=== PATIENT | male | born 1955 | race Two or more races ===

== ENCOUNTER 2023-09-08 20:02 | Emergency (ER) | payer MEDICARE, OTHER ==
[~2023-09-08] VITALS: Ht 177.8 cm; Wt 74.8 kg
[2023-09-08 21:13] LABS: BASOPHILS # (AUTO) 0.1 K/uL (0.0-0.2); BASOPHILS % (AUTO) 0.7 % (0.0-2.0); EOSINOPHILS # (AUTO) 0.2 K/uL (0.0-0.7); HEMATOCRIT 36 % (39-51); HEMOGLOBIN 12.6 g/dL (13.5-17.5); LYMPHOCYTES # (AUTO) 2.3 K/uL (0.8-4.8); LYMPHOCYTES % (AUTO) 25.6 % (20.0-44.0); MEAN CORPUSCULAR HEMOGLOBIN 31 PG (26.0-33.0); MEAN CORPUSCULAR HGB CONC 35 g/dl (31.0-36.0); MEAN CORPUSCULAR VOLUME 89 fL (80-96); MONOCYTES # (AUTO) 1.1 K/uL (0.1-1.30); MONOCYTES % (AUTO) 12.4 % (2.0-12.0); NEUTROPHILS # (AUTO) 5.3 K/uL (1.8-8.9); NEUTROPHILS % (AUTO) 59.3 % (43.0-81.0); PLATELET COUNT (AUTO) 280 K/uL (150-450); RED BLOOD CELL COUNT(AUTO) 4.06 MIL/uL (4.5-6.0); RED CELL DISTRIBUTION WIDTH 15.3 % (11.5-15.0); WHITE BLOOD COUNT (AUTO) 8.9 K/uL (4.3-11.0)
[2023-09-08 21:20] LABS: APPEARANCE,URINE CLEAR (CLEAR); BILIRUBIN,URINE NEGATIVE (NEGATIVE); BLOOD, URINE TRACE-INTA Ery/uL (NEGATIVE); COLOR,URINE YELLOW (YELLOW); KETONES,URINE NEGATIVE (NEGATIVE); LEUKOCYTE ESTERASE ,URINE NEGATIVE (NEGATIVE); NITRITE, URINE NEGATIVE (NEGATIVE); PROTEIN,URINE 1+ mg/dl (NEGATIVE); UGLUCOSE 3+ mg/dL (NEGATIVE); UROBILINOGEN,URINE 0.2 EU/dL (0.2)
[2023-09-08] MEDS: IV NS 0.9% 1,000 ML IV ONE ×2 (21:30→23:19)
[2023-09-08 21:35] LABS: AMPHETAMINE, URINE NEGATIVE (NEGATIVE); BARBITURATE, URINE NEGATIVE (NEGATIVE); BENZODIAZEPINE, URINE NEGATIVE (NEGATIVE); CANNABINOID, URINE NEGATIVE (NEGATIVE); COCCAINE, URINE NEGATIVE (NEGATIVE); OPIATE, URINE NEGATIVE (NEGATIVE); PHENCYCLIDINE SCREEN,URINE NEGATIVE (NEGATIVE)
[2023-09-08 21:42] LABS: ALANINE AMINOTRANSFERASE 22 U/L (12-78); ALBUMIN 3.2 g/dL (3.4-5.0); ALCOHOL, BLOOD < 3 mg/dL (0-10); ALKALINE PHOSPHATASE 98 U/L (46-116); ASPARTATE AMINOTRANSFERASE 19 U/L (15-37); BILIRUBIN,DIRECT 0.1 mg/dL (0.0-0.2); BILIRUBIN,TOTAL 0.2 mg/dL (0.2-1.0); CALCIUM, SERUM 9.6 mg/dL (8.5-10.1); CARBON DIOXIDE 25 mmol/L (21-32); CHLORIDE 100 mmol/L (98-107); CREATININE 1.3 mg/dL (0.6-1.3); GLUCOSE 262 mg/dL (74-106); POTASSIUM 3.9 mmol/L (3.5-5.1); SODIUM SERUM 137 mmol/L (136-145); TOTAL PROTEIN, SERUM 7.1 g/dL (6.4-8.2); UREA NITROGEN, BLOOD 32 mg/dL (7-18)
[2023-09-08 21:43] LABS: ACETAMINOPHEN 0 ug/ml (10-30)
[2023-09-08 21:59] LABS: ADD URINE CULTURE NO; BACTERIA,URINE None seen /HPF (None Seen); SQUAMOUS EPITHELIAL CELL,UR Rare /HPF (None Seen); WBC,URINE NONE SEEN /HPF (0-3)
[2023-09-09 05:15] VITALS: TEMP 98.5
[2023-09-09 06:25] VITALS: BP 119/81; O2SAT 98
== END 2023-09-09 06:26 | disposition home or self-care (01) ==
LOC: ER 20:04
DX: E11.65 Type 2 diabetes mellitus with hyperglycemia (principal); R53.1 Weakness; I10 Essential (primary) hypertension; M79.18 Myalgia, other site
CPT/HCPCS: 99284; 96360; 93005; 85025; 80048; 82550; 80076; 81001; 36415; 84484; 82962; 82553; 80143; 80320; 80307; J7030 ×2; G0480

== ENCOUNTER 2023-11-29 14:57 | Inpatient (IN) | payer MEDICARE, OTHER ==
[~2023-11-29] VITALS: Ht 177.8 cm; Wt 74.8 kg
[2023-11-29 15:48] LABS: BASOPHILS # (AUTO) 0.1 K/uL (0.0-0.2); EOSINOPHILS # (AUTO) 0.2 K/uL (0.0-0.7); EOSINOPHILS % (AUTO) 2.7 % (0.0-6.0); HEMATOCRIT 40 % (39-51); HEMOGLOBIN 13.5 g/dL (13.5-17.5); LYMPHOCYTES # (AUTO) 2.5 K/uL (0.8-4.8); LYMPHOCYTES % (AUTO) 32.3 % (20.0-44.0); MEAN CORPUSCULAR HEMOGLOBIN 31 PG (26.0-33.0); MEAN CORPUSCULAR HGB CONC 34 g/dl (31.0-36.0); MEAN CORPUSCULAR VOLUME 92 fL (80-96); MONOCYTES # (AUTO) 0.7 K/uL (0.1-1.30); MONOCYTES % (AUTO) 8.8 % (2.0-12.0); NEUTROPHILS # (AUTO) 4.3 K/uL (1.8-8.9); NEUTROPHILS % (AUTO) 55.2 % (43.0-81.0); PLATELET COUNT (AUTO) 264 K/uL (150-450); RED BLOOD CELL COUNT(AUTO) 4.31 MIL/uL (4.5-6.0); RED CELL DISTRIBUTION WIDTH 14.5 % (11.5-15.0); WHITE BLOOD COUNT (AUTO) 7.8 K/uL (4.3-11.0)
[2023-11-29 15:59] LABS: CARBON DIOXIDE 27 mmol/L (21-32); CHLORIDE 102 mmol/L (98-107); CREATININE 1.2 mg/dL (0.6-1.3); GLUCOSE 151 mg/dL (74-106); POTASSIUM 4.4 mmol/L (3.5-5.1); SODIUM SERUM 135 mmol/L (136-145); UREA NITROGEN, BLOOD 22 mg/dL (7-18)
[2023-11-29 16:13] LABS: ALANINE AMINOTRANSFERASE 12 U/L (12-78); ALBUMIN 3.7 g/dL (3.4-5.0); ALCOHOL, BLOOD < 3 mg/dL (0-10); ALKALINE PHOSPHATASE 52 U/L (46-116); ASPARTATE AMINOTRANSFERASE 11 U/L (15-37); BILIRUBIN,DIRECT 0.1 mg/dL (0.0-0.2); BILIRUBIN,TOTAL 0.4 mg/dL (0.2-1.0); SALICYLATE 6.7 mg/dL (2.8-20.0)
[2023-11-29 16:16] LABS: ACETAMINOPHEN 0 ug/ml (10-30)
[2023-11-29 17:07] LABS: APPEARANCE,URINE Clear (CLEAR); BILIRUBIN,URINE Negative (NEGATIVE); BLOOD, URINE Negative Ery/uL (NEGATIVE); COLOR,URINE YELLOW (YELLOW); KETONES,URINE Trace mg/dL (NEGATIVE); LEUKOCYTE ESTERASE ,URINE Negative (NEGATIVE); NITRITE, URINE Negative (NEGATIVE); PH,URINE 5.5 (5.0-8.0); PROTEIN,URINE Trace mg/dl (NEGATIVE); UGLUCOSE 500 MG/DL mg/dL (NEGATIVE); UROBILINOGEN,URINE 0.2 EU/dL (0.2)
[2023-11-29] MEDS ORDERED: TRAZ-257 PO (17:12)
[2023-11-29] MEDS ORDERED: ZIPR60CA2 PO (17:12)
[2023-11-29] MEDS ORDERED: METF-442 PO (17:12)
[2023-11-29] MEDS ORDERED: AMLO10TA4 PO (17:12)
[2023-11-29] MEDS ORDERED: GABA-536 PO (17:12)
[2023-11-29] MEDS ORDERED: LISI10TA29 PO (17:12)
[2023-11-29 17:46] LABS: AMPHETAMINE, URINE POSITIVE (NEGATIVE); BARBITURATE, URINE NEGATIVE (NEGATIVE); BENZODIAZEPINE, URINE NEGATIVE (NEGATIVE); COCCAINE, URINE NEGATIVE (NEGATIVE); OPIATE, URINE NEGATIVE (NEGATIVE); PHENCYCLIDINE SCREEN,URINE NEGATIVE (NEGATIVE)
[2023-11-29 17:49] LABS: CANNABINOID, URINE POSITIVE (NEGATIVE)
[2023-11-29 18:19] LABS: ADD URINE CULTURE YES; BACTERIA,URINE Rare /HPF (None Seen); RBC,URINE 0-2 /HPF (0-2); SQUAMOUS EPITHELIAL CELL,UR Few /HPF (None Seen)
[2023-11-29 18:27] VITALS: O2SAT 97
[2023-11-29] MEDS ORDERED: MAGNESIUM HYDROXIDE 30 ML UDC PO PRN (19:30)
[2023-11-29] MEDS ORDERED: MAG HYDROX/AL HYDROX/SIMETH 30 ML UDC PO PRN (19:30)
[2023-11-29] MEDS ORDERED: ZOLPIDEM TARTRATE 5 MG TABLET PO PRN (19:30)
[2023-11-29] MEDS ORDERED: LORAZEPAM 0.5 MG TABLET PO PRN (19:30)
[2023-11-29] MEDS ORDERED: LORAZEPAM 1 MG TABLET PO PRN (19:30)
[2023-11-29 20:00] VITALS: BP 137/84; TEMP 98.1; O2SAT 96
[2023-11-29] MEDS: BLOOD SUGAR DIAGNOSTIC 1 EACH STRIP IN ONE (20:42)
[2023-11-29] MEDS ORDERED: DEXTROSE 50%-WATER 50 ML DISP.SYRIN IV PRN (22:30)
[2023-11-30] MEDS: BLOOD SUGAR DIAGNOSTIC 1 EACH STRIP IN SCH (07:45)
[2023-11-30] MEDS: INSULIN REGULAR, HUMAN 100 UNIT/ML 3 ML VIAL SQ PRN (07:58)
[2023-11-30 08:00] VITALS: BP 155/83; TEMP 97.7; O2SAT 96
[2023-11-30] MEDS: METFORMIN 500 MG TABLET PO SCH (08:37)
[2023-11-30] MEDS: GABAPENTIN 400 MG CAPSULE PO SCH (08:37)
[2023-11-30] MEDS: AMLODIPINE BESYLATE 10 MG TABLET PO SCH (08:37)
[2023-11-30] MEDS: LISINOPRIL (10MG) 10 MG TABLET PO SCH (08:38)
[2023-11-30] MEDS: LITHIUM CARBONATE 150 MG CAPSULE PO SCH (12:08)
[2023-11-30 15:31] LABS: CHOLESTEROL 180 mg/dL (<200); HDL CHOLESTEROL 42 mg/dL (40-60); LDL 111 mg/dL (0-99); TRIGLYCERIDES 187 mg/dL (30-150)
[2023-11-30 16:00] VITALS: BP 135/76; TEMP 97.8; O2SAT 99
[2023-11-30] MEDS: ZIPRASIDONE 20 MG CAPSULE PO SCH (16:10)
[2023-11-30] MEDS: ZOLPIDEM TARTRATE 5 MG TABLET PO PRN (22:12)
[2023-12-01 06:58] LABS: BASOPHILS % (AUTO) 0.6 % (0.0-2.0); EOSINOPHILS # (AUTO) 0.2 K/uL (0.0-0.7); EOSINOPHILS % (AUTO) 2.6 % (0.0-6.0); HEMATOCRIT 41 % (39-51); LYMPHOCYTES # (AUTO) 2.5 K/uL (0.8-4.8); MEAN CORPUSCULAR HEMOGLOBIN 31 PG (26.0-33.0); MEAN CORPUSCULAR HGB CONC 34 g/dl (31.0-36.0); MEAN CORPUSCULAR VOLUME 90 fL (80-96); MONOCYTES # (AUTO) 0.6 K/uL (0.1-1.30); MONOCYTES % (AUTO) 7.8 % (2.0-12.0); NEUTROPHILS # (AUTO) 4.5 K/uL (1.8-8.9); PLATELET COUNT (AUTO) 257 K/uL (150-450); RED BLOOD CELL COUNT(AUTO) 4.54 MIL/uL (4.5-6.0); RED CELL DISTRIBUTION WIDTH 14.8 % (11.5-15.0); WHITE BLOOD COUNT (AUTO) 7.8 K/uL (4.3-11.0)
[2023-12-01 07:09] LABS: POTASSIUM 4.5 mmol/L (3.5-5.1)
[2023-12-01 16:00] VITALS: BP 127/74; TEMP 97.4; O2SAT 98
[2023-12-03 08:00] VITALS: BP 155/84; TEMP 97.7; O2SAT 96
[2023-12-03 16:13] VITALS: BP 124/82; TEMP 97.9; O2SAT 100
[2023-12-03 20:00] VITALS: BP 133/84; TEMP 98.4; O2SAT 100
[2023-12-04 08:00] VITALS: BP 137/73; TEMP 97.6; O2SAT 96
[2023-12-04 16:00] VITALS: BP 137/69; TEMP 98.4; O2SAT 100
[2023-12-04 20:00] VITALS: BP 123/67; TEMP 98.1; O2SAT 96
[2023-12-05] MEDS: ACETAMINOPHEN 325 MG TABLET PO PRN (06:36)
[2023-12-05 08:00] VITALS: BP 130/71; TEMP 98.1; O2SAT 98
[2023-12-05 16:00] VITALS: BP 141/71; TEMP 98; O2SAT 98
[2023-12-05] MEDS: LITHIUM CARBONATE 150 MG CAPSULE PO SCH (16:39)
[2023-12-05 19:55] VITALS: BP 109/61; TEMP 97.8; O2SAT 98
[2023-12-06 08:00] VITALS: BP 140/71; TEMP 97.7; O2SAT 95
[2023-12-06 16:00] VITALS: BP 97/62; TEMP 98; O2SAT 98
[2023-12-06 20:00] VITALS: BP 141/73; TEMP 97.7; O2SAT 99
[2023-12-07 08:00] VITALS: BP_SYST 115; BP_SYST 122; BP_DIAS 57; BP_DIAS 74; TEMP 98.6; O2SAT 97
[2023-12-07 16:00] VITALS: BP 117/69; TEMP 98.7; O2SAT 98
[2023-12-07 20:02] VITALS: BP 115/58; TEMP 98.4; O2SAT 98
[2023-12-08 08:00] VITALS: BP 134/61; TEMP 98; O2SAT 96
[2023-12-08 16:00] VITALS: BP 123/73; TEMP 98; O2SAT 99
[2023-12-08 20:25] VITALS: BP 112/54; TEMP 98.2; O2SAT 97
[2023-12-09 08:00] VITALS: BP 113/48; TEMP 97.9; O2SAT 97
[2023-12-09 16:08] VITALS: BP 132/57; TEMP 98.2; O2SAT 97
[2023-12-09 20:08] VITALS: BP 118/64; TEMP 98.2; O2SAT 96
[2023-12-10 08:00] VITALS: BP 136/65; TEMP 98.6; O2SAT 99
[2023-12-10 16:00] VITALS: BP 119/75; TEMP 97.6; O2SAT 97
[2023-12-10 20:20] VITALS: BP 104/48; TEMP 97.8; O2SAT 96
[2023-12-11 08:00] VITALS: BP 134/82; TEMP 98.1; O2SAT 98
[2023-12-11 08:09] VITALS: BP 134/82
== END 2023-12-11 09:00 | DRG 885 ==
LOC: ER 15:00 → GPS 18:42
PROVIDERS: ADMIT Psychiatry & Neurology Psychiatry; ATTEND Internal Medicine
DX: F31.5 Bipolar disorder, current episode depressed, severe, with psychotic features (principal); E11.65 Type 2 diabetes mellitus with hyperglycemia; R45.851 Suicidal ideations; E87.1 Hypo-osmolality and hyponatremia; R45.850 Homicidal ideations; F15.10 Other stimulant abuse, uncomplicated; I10 Essential (primary) hypertension; Z79.84 Long term (current) use of oral hypoglycemic drugs; F12.10 Cannabis abuse, uncomplicated; Z20.822 Contact with and (suspected) exposure to COVID-19; F41.9 Anxiety disorder, unspecified
CPT/HCPCS: 36415; 80048-TC; 80061-TC; 80076-TC; 80178-TC; 81001; 82962-TC; 85025-TC; 87081-TC; 87086-TC; 97110-TC; 97112-TC; 97116-TC; 97530-TC; G0480; J1815